=== PATIENT | male | born 1970 | race Caucasian/White ===

== ENCOUNTER 2017-08-03 18:20 | Emergency (ER) | payer SELFPAY ==
[2017-08-03 18:31] VITALS: BMI 26.6
[2017-08-03 18:36] VITALS: BP 128/82; PULSE 78; RESP 18; TEMP 98.3; O2SAT 99
[2017-08-03 19:07] LABS: URINE BILIRUBIN NEGATIVE (NEGATIVE); URINE BLOOD NEGATIVE (NEGATIVE); URINE COLOR Straw (YELLOW); URINE GLUCOSE (UA) NORMAL (Normal); URINE KETONE NEGATIVE (NEGATIVE); URINE LEUKOCYTE ESTERASE 1+ Leu/uL (Negative); URINE PROTEIN NEGATIVE (NEGATIVE); URINE UROBILINOGEN NORMAL mg/dL (0.2-1.0); WBC URINE 7 /hpf (0-5)
[2017-08-03 19:10] LABS: RBC URINE 3 /hpf (0-3)
--- NOTE | 2017-08-03 20:29 | C.PDOC ---
History Of Present Illness 46 y/o male presents to ED with c/o penile discharge for 5 days, associated with dysuria. Patient reports unprotected sex with female partner last week. Notes partner was treated for STI yesterday. Denies fever, chills, nausea, vomiting, diarrhea, heamturia, or other associated symptoms. Time Seen by Provider: 08/03/17 19:05 Chief Complaint (Nursing): Male Genitourinary History Per: Patient History/Exam Limitations: no limitations Onset/Duration Of Symptoms: Days Current Symptoms Are (Timing): Still Present Quality Of Discomfort: "Pain" Associated Symptoms: Urinary Symptoms (dysuria). denies: Fever, Nausea, Vomiting, Diarrhea Recent travel outside of the [place]: No Past Medical History Reviewed: Historical Data, Nursing Documentation, Vital Signs Vital Signs: Last Vital Signs Temp 98.3 F 08/03/17 18:32 Pulse 78 08/03/17 18:32 Resp 18 08/03/17 18:32 BP 128/82 08/03/17 18:32 Pulse Ox 99 08/03/17 20:31 - Medical History PMH: No Chronic Diseases Family History: States: Unknown Family Hx - Social History Hx Tobacco Use: No Hx Alcohol Use: Yes Hx Substance Use: No - Immunization History Hx Tetanus Toxoid Vaccination: No Hx Influenza Vaccination: Yes Hx Pneumococcal Vaccination: No Review Of Systems Constitutional: Negative for: Fever, Chills Gastrointestinal: Negative for: Nausea, Vomiting, Abdominal Pain Genitourinary: Positive for: Dysuria, Penile Discharge. Negative for: Hematuria Skin: Negative for: Rash Physical Exam - Physical Exam Appears: Non-toxic, No Acute Distress Skin: Warm, Dry Head: Atraumatic, Normacephalic Oral Mucosa: Moist Chest: Symmetrical Cardiovascular: Rhythm Regular Respiratory: Normal Breath Sounds, No Rales, No Rhonchi, No Wheezing Gastrointestinal/Abdominal: Soft, No Tenderness, No Guarding, No Rebound Back: Normal Inspection Male Genital: Normal Inspection, No Testicular Tenderness, No Testicular Swelling, No Inguinal Tenderness, No Inguinal Swelling, No Circumcised, Other ( easily movable foreskin, no discharge, no rashes, no swelling) Extremity: Normal ROM Neurological/Psych: Oriented x3 ED Course And Treatment O2 Sat by Pulse Oximetry: 99 (RA) Pulse Ox Interpretation: Normal Medical Decision Making Medical Decision Making: pt with peniles discharge after unprotected sex, given ceftriaxone and zithromax, will be referred to std clinic. Disposition Counseled Patient/Family Regarding: Diagnosis, Need For Followup, Rx Given - Disposition Referrals: Shaik Mendoza MD [Primary Care Provider] - Disposition: HOME/ ROUTINE Disposition Time: 21:31 Condition: STABLE Additional Instructions: Sin relaciones sexuales sin proteccin, use condn todo el tiempo, sydni un seguimiento en la clnica de ETS y con lane PMD en unos argueta. 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 - Scribe Statement The provider has reviewed the documentation as recorded by the Scribe SM All medical record entries made by the Scribe were at my direction and personally dictated by me. I have reviewed the chart and agree that the record accurately reflects my personal performance of the history, physical exam, medical decision making, and the department course for this patient. I have also personally directed, reviewed, and agree with the discharge instructions and disposition.
[2017-08-03] MEDS ORDERED: cefTRIAXone (Rocephin) 250 mg Inj IM STA (20:34)
--- NOTE | 2017-08-03 20:35 | C.PDOC ---
Time Seen by Provider: 08/03/17 19:05 Chief Complaint (Nursing): Male Genitourinary Past Medical History Vital Signs: Last Vital Signs Temp 98.3 F 08/03/17 18:32 Pulse 78 08/03/17 18:32 Resp 18 08/03/17 18:32 BP 128/82 08/03/17 18:32 Pulse Ox 99 08/03/17 18:32 Family History: States: Unknown Family Hx - Social History Hx Tobacco Use: No Hx Alcohol Use: Yes Hx Substance Use: No - Immunization History Hx Tetanus Toxoid Vaccination: No Hx Influenza Vaccination: Yes Hx Pneumococcal Vaccination: No ED Course And Treatment O2 Sat by Pulse Oximetry: 99 Disposition - Disposition Referrals: Shaik Mendoza MD [Primary Care Provider] -
== END 2017-08-03 21:42 | disposition home or self-care (01) ==
LOC: SUPCPDRO 18:20 → C.ER 18:20
DX: Z20.2 Contact with and (suspected) exposure to infections with a predominantly sexual mode of transmission (principal)
CPT/HCPCS: 81001; 87086; 87491; 87591; 96372; 99283; J0696

== ENCOUNTER 2018-02-06 14:57 | Emergency (ER) | payer OTHER ==
[2018-02-06 14:59] VITALS: BMI 26.6
[2018-02-06 15:07] VITALS: BP 122/77; PULSE 89; RESP 20; TEMP 98.1; O2SAT 99
--- NOTE | 2018-02-06 16:00 | C.PDOC ---
History Of Present Illness 47 year old male presents to the ED for evaluation after he noticed bright red blood per rectum and in stool for the past 2 days. Patient notes some swelling to his rectal area. He reports experiencing similar symptoms in the past, which self-resolved. Patient denies fever, chills, abdominal pain, nausea and vomiting, UTI sx, melena, back pain, changes in BM, denies any other active complaints. Time Seen by Provider: 02/06/18 15:13 Chief Complaint (Nursing): GI Problem History Per: Patient History/Exam Limitations: no limitations Onset/Duration Of Symptoms: Days (2) Current Symptoms Are (Timing): Still Present Quality Of Discomfort: denies: "Pain" Associated Symptoms: denies: Fever, Chills, Nausea, Vomiting Additional History Per: Patient Past Medical History Reviewed: Historical Data, Nursing Documentation, Vital Signs Vital Signs: Last Vital Signs Temp 98.1 F 02/06/18 15:05 Pulse 89 02/06/18 15:05 Resp 20 02/06/18 15:05 BP 122/77 02/06/18 15:05 Pulse Ox 99 02/06/18 17:10 - Medical History PMH: No Chronic Diseases Surgical History: No Surg Hx Family History: States: Unknown Family Hx - Social History Hx Tobacco Use: No Hx Alcohol Use: Yes Hx Substance Use: No - Immunization History Hx Tetanus Toxoid Vaccination: Yes Hx Influenza Vaccination: Yes Hx Pneumococcal Vaccination: No Review Of Systems Constitutional: Negative for: Fever, Chills Gastrointestinal: Positive for: Other (right red blood per rectum and stool, rectal swelling ). Negative for: Nausea, Vomiting Physical Exam - Physical Exam Appears: Non-toxic, No Acute Distress Skin: Normal Color, Warm, Dry Head: Normacephalic Oral Mucosa: Moist Neck: Supple Cardiovascular: Rhythm Regular Respiratory: No Rales, No Rhonchi, No Wheezing Gastrointestinal/Abdominal: Soft, No Tenderness, No Organomegaly, No Distention , No Guarding, No Rebound Rectal: Rectal Tone (normal), Heme Negative, Hemorrhoids (small, tender, internal hemorrhoid with at 8 o'clock position ) Back: No CVA Tenderness Extremity: Normal ROM, No Deformity, No Swelling Neurological/Psych: Oriented x3, Normal Speech, Normal Cognition ED Course And Treatment O2 Sat by Pulse Oximetry: 99 (on RA) Pulse Ox Interpretation: Normal Progress Note: On re-evaluation, pt is AFebrile, hemodynamicaly stable. Non- toxic. AMbulatory in ED with stable gait. neck: SUpple. Lungs: CTA B/L, BS equal B/L. ABd: benign, (-) guarding, (-) rebound. Rectal exam c/w small internal hemorrhoids. NO evidence of fissure or abscess. Pt advised on course of ds. ref. to F/u with PMD in 1-2 days for re-eval, Pt understand and agrees with plan. Disposition Counseled Patient/Family Regarding: Diagnosis, Need For Followup, Rx Given - Disposition Referrals: 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 - Scribe Statement The provider has reviewed the documentation as recorded by the Scribe (Emilee Jacinto) All medical record entries made by the Scribe were at my direction and personally dictated by me. I have reviewed the chart and agree that the record accurately reflects my personal performance of the history, physical exam, medical decision making, and the department course for this patient. I have also personally directed, reviewed, and agree with the discharge instructions and disposition.
== END 2018-02-06 16:17 | disposition home or self-care (01) ==
LOC: C.ER 14:57
DX: K64.9 Unspecified hemorrhoids (principal)

== ENCOUNTER 2018-05-13 11:16 | Emergency (ER) | payer OTHER ==
[2018-05-13 11:16] VITALS: BMI 26.6
[2018-05-13 11:28] VITALS: BP 132/78; PULSE 70; RESP 16; TEMP 97.8; O2SAT 98
--- NOTE | 2018-05-13 11:45 | C.PDOC ---
History Of Present Illness 47 year old male with a history of chronic back pain presents to the emergency department for evaluation of lower back pain radiating down legs bilaterally for the past six months. Patient reports that the pain has worsened over the past few days. Pt describes pain as aching, intermittent, worse with weight bearing. Pt also reports, some intermittent aching pain over B/L feet, localized , worse with ambulation. Pt denies known recent trauma, injuries, fever, chills , sore throat, CP, SOB, cough, wheezing, abdominal pain, UTI symptoms, saddle anesthesia, denies weakness, sensory or vascular deficits to B/L LEs. Ambulate to ED for evaluation, not in any apparent distress. Time Seen by Provider: 05/13/18 11:33 Chief Complaint (Nursing): Pain, Chronic History Per: Patient History/Exam Limitations: no limitations Onset/Duration Of Symptoms: Days Current Symptoms Are (Timing): Still Present Past Medical History Vital Signs: Last Vital Signs Temp 97.8 F 05/13/18 11:25 Pulse 70 05/13/18 11:25 Resp 16 05/13/18 11:25 BP 132/78 05/13/18 11:25 Pulse Ox 98 05/13/18 11:48 Family History: States: Unknown Family Hx - Social History Hx Tobacco Use: No Hx Alcohol Use: Yes Hx Substance Use: No - Immunization History Hx Tetanus Toxoid Vaccination: Yes Hx Influenza Vaccination: Yes Hx Pneumococcal Vaccination: No Review Of Systems Except As Marked, All Systems Reviewed And Found Negative. Constitutional: Negative for: Fever, Chills Respiratory: Negative for: Cough Gastrointestinal: Negative for: Abdominal Pain Genitourinary: Negative for: Dysuria Musculoskeletal: Positive for: Back Pain, Leg Pain (bilateral), Foot Pain ( bilateral) Physical Exam - Physical Exam Appears: Well, Non-toxic, No Acute Distress Skin: Warm, Dry, No Rash, No Ecchymosis Head: Atraumatic, Normacephalic Eye(s): bilateral: PERRL Nose: No Flaring, No Discharge Oral Mucosa: Moist Throat: No Erythema, No Drooling Neck: Normal ROM, Trachea Midline, No Midline Cervical Tenderness, No Paracervical Tenderness, No Step Off Deformity, Supple Chest: Symmetrical, No Tenderness Cardiovascular: Rhythm Regular, No Murmur, No JVD Respiratory: No Decreased Breath Sounds, No Accessory Muscle Use, No Rales, No Rhonchi, No Wheezing Gastrointestinal/Abdominal: Soft, No Tenderness, No Distention, No Guarding, No Rebound Back: No CVA Tenderness, No Vertebral Tenderness, Paraspinal Tenderness (lumbar paraspinal tenderness) Extremity: Normal ROM, No Tenderness, No Pedal Edema, No Deformity, No Swelling Neurological/Psych: Oriented x3, Normal Speech, Normal Cognition, Normal Motor, Normal Sensation, Normal Reflexes ED Course And Treatment O2 Sat by Pulse Oximetry: 98 (RA) Pulse Ox Interpretation: Normal - Other Rad L-spine X-Ray: Interpreted by Me, Viewed By Me Interpretation: (-) acute fx or sublux Progress Note: Plan: Ultram 50mg PO. XR LS AP/LAT. Urinalysis. On re-eval, pt is afebrile, hemodynamically stable. Non-toxic. Ambulatory in ED with stable gait. ENT: no acute findings. Neck: Supple, (-) JVD, (-) carotid bruits B/L. Lungs: CTA B/L, BS equal B/L. Abd: benign, (-) guarding, (-) rebound. Back: (-) CVA tenderness. Neurologically intact. L-spine xray review- normal study. UA- normal. Patient has clinical findings c/w lumbar radiculopathy, B/L feet pain r/o plantar fasciitis. Pt advised and ref. to F/U with PMD, Podiatry In 2-3 days for re-eval. return to ED if any worsening or new changes. Disposition Counseled Patient/Family Regarding: Studies Performed, Diagnosis, Need For Followup, Rx Given - Disposition Referrals: [facility] at [facility] [Outside] Disposition: HOME/ ROUTINE Disposition Time: 12:05 Condition: STABLE Additional Instructions: Take medication as prescribed Follow up with PMD, Podiatry Clinic on Tuesday from 12 PM-3PM for further evaluation of B/L feet pain return to ED if any worsening or new changes. 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 - Scribe Statement The provider has reviewed the documentation as recorded by the Scribe (Pierce Paul) All medical record entries made by the Scribe were at my direction and personally dictated by me. I have reviewed the chart and agree that the record accurately reflects my personal performance of the history, physical exam, medical decision making, and the department course for this patient. I have also personally directed, reviewed, and agree with the discharge instructions and disposition.
[2018-05-13 11:58] LABS: URINE BILIRUBIN NEGATIVE (NEGATIVE); URINE BLOOD NEGATIVE (NEGATIVE); URINE CLARITY Clear (Clear); URINE COLOR Yellow (YELLOW); URINE GLUCOSE (UA) NORMAL (Normal); URINE LEUKOCYTE ESTERASE NEG Leu/uL (Negative); URINE PROTEIN NEGATIVE (NEGATIVE); URINE UROBILINOGEN NORMAL mg/dL (0.2-1.0)
--- NOTE | 2018-05-13 17:57 | RAD ---
Date of service: 05/13/2018 PROCEDURE: Radiographs of the Lumbar Spine. HISTORY: pain COMPARISON: No prior. FINDINGS: BONES: Straightened curvature without fracture or spondylolisthesis identified. Disc height loss at L4-5 and gross spondylosis here reflects advancing degenerative disease. No destructive bony lesion appreciable. DISC SPACES: Unremarkable. OTHER FINDINGS: None. 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 No fracture or spondylolisthesis appreciable.
== END 2018-05-13 12:23 | disposition home or self-care (01) ==
LOC: C.ER 11:16
DX: M54.16 Radiculopathy, lumbar region (principal); M72.2 Plantar fascial fibromatosis